=== PATIENT | female | born 2000 | race Caucasian/White ===

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

== ENCOUNTER → 2022-07-28 | Outpatient (CLI) | payer OTHER ==
--- NOTE | 2022-07-28 10:00 | US ---
EXAMINATION TYPE: US transvaginal DATE OF EXAM: 07/28/2022 COMPARISON: NONE CLINICAL HISTORY: R39.15 Urgency of urination. Left sided stabbing pelvic pain. . TECHNIQUE: Transvaginal (TV). Date of LMP: 07/10/2022 EXAM MEASUREMENTS: Uterus: 7.9 x 4.8 x 3.6 cm Endometrial Stripe: 0.70 cm Right Ovary: 2.67 x 3.0 x 1.9 cm Left Ovary: 6.0 x 5.23 x 4.6 cm 1. Uterus: Anteverted Appears heterogeneous. Hyperechoic areas seen, largest: 0.5 x 0.3 x 0.2 cm. 2. Endometrium: Measures 0.7 cm. Nonspecific Echogenic foci at the endometrial uterine junction. 3. Right Ovary: Appears wnl. Follicles are present. 4. Left Ovary: Appears enlarged. Complex area seen: 4.1 x 4.7 x 3.9 cm. Anechoic area seen: 1.3 x 2. 7 x 2.2 cm. Spectral, color and waveform doppler imaging shows arterial and venous flow within the ovaries. 5. Bilateral Adnexa: Appear wnl 6. Posterior cul-de-sac: free fluid seen posterior to the uterus, more midline. IMPRESSION: 1. Complex cyst left ovary. Follow-up is recommended. 2. Nonspecific echogenic foci within the endometrial uterine junction region.
== END | disposition home or self-care (01) ==
LOC: RADUSWWP 09:22
PROVIDERS: ATTEND Family Medicine
DX: N83.202 Unspecified ovarian cyst, left side (principal)
CPT/HCPCS: 76830